=== PATIENT | female | born 1985 | race Hispanic/Latino ===

== ENCOUNTER 2018-01-11 13:07 | Emergency (ER) | payer OTHER ==
[~2018-01-11] VITALS: Ht 160 cm; Wt 88.5 kg
[2018-01-11] MEDS ORDERED: ALBUTEROL/IPRATROPIUM 3 ML NEB ONE (15:42)
[2018-01-11] MEDS ORDERED: DEXAMETHASONE SOD PHOS INJ 4 MG/ML VIAL IM ONE (15:45)
[2018-01-11] MEDS ORDERED: ALBUTEROL/IPRATROPIUM 3 ML NEB NEB ONE ×2 (15:45→18:00)
[2018-01-11] MEDS ORDERED: DEXAMETHASONE SOD PHOS 10 MG/1 ML VIAL IM NR (16:00)
--- NOTE | 2018-01-11 17:44 | Diagnostic Imaging Report ---
Examination: Single AP view of the chest. COMPARISON: None. INDICATION: Hard to breathe, cough and wheezing IMPRESSION: 1. Lines and Tubes: None 2. Lungs are grossly clear. No consolidation or effusion. 3. Cardiomediastinal silhouette is normal. Pulmonary vasculature is normal. 4. No acute bony abnormalities. Signed by: Dr. Maikel Yañez M.D. on 01/11/2018 5:40 PM
[2018-01-11] MEDS ORDERED: IBUPROFEN 600 MG TAB PO ONE (18:30)
[2018-01-11] MEDS ORDERED: DIPHENHYDRAMINE HCL 25 MG CAP PO ONE (18:30)
== END 2018-01-11 20:28 | disposition left against medical advice (07) ==
LOC: ER 13:07
DX: R06.00 Dyspnea, unspecified (principal)
CPT/HCPCS: 71045; 94640